=== PATIENT | male | born 1940 | race Caucasian/White ===

== ENCOUNTER → 2022-08-11 | Outpatient (CLI) | payer OTHER ==
[~2022-08-11] MED LIST: BACTRIM DS 8001 TA1 PO; BP MED; GLIMEPIRIDE2 MG PO; KEFLEX500 MG PO; LEVAQUIN750 MG PO; LIPITOR10 MG PO; LISINOPRIL10 MG PO; METFORMIN; MYCOLOG CREAM 115 GM PO; ULTRAM50 MG PO; VOLTAREN50 M1 PO
== END | disposition home or self-care (01) ==
LOC: LAB 11:03
PROVIDERS: ATTEND Internal Medicine
DX: M47.812 Spondylosis without myelopathy or radiculopathy, cervical region (principal); M25.78 Osteophyte, vertebrae

== ENCOUNTER 2023-10-18 22:01 | Emergency (ER) | payer OTHER ==
[~2023-10-18] VITALS: Wt 72.6 kg
[~2023-10-18 22:01] MED LIST changes: +Clopidogrel75 MG PO; +FERROUS SULFAT325 MG PO; +HYDRALAZINE HYD50 MG PO; +LASIX20 MG PO; +LIPITOR40 MG PO; +LOSARTAN POTASS25 M1 PO; +METFORMIN HYD1000 MG PO; +OMNICEF300 MG PO; +PANTOPRAZOLE SO40 MG PO; +RIVASTIGMINE1 EACH T; +TOPROL XL25 MG PO; +XARE20MG PO; +ZITHROMAX250 MG PO; +ZOLOFT50 MG PO
[2023-10-18 22:06] VITALS: BP 141/84
== END 2023-10-19 00:44 ==
LOC: ED 22:01
DX: S00.81XA Abrasion of other part of head, initial encounter (principal); G30.9 Alzheimer's disease, unspecified; F02.80 Dementia in other diseases classified elsewhere, unspecified severity, without behavioral disturbance, psychotic disturbance, mood disturbance, and anxiety; Z79.2 Long term (current) use of antibiotics; Z79.899 Other long term (current) drug therapy; Z98.890 Other specified postprocedural states; W18.09XA Striking against other object with subsequent fall, initial encounter; Y93.89 Activity, other specified; Y92.128 Other place in nursing home as the place of occurrence of the external cause; Y99.8 Other external cause status

== ENCOUNTER 2024-04-26 14:32 | Inpatient (IN) | payer OTHER ==
[~2024-04-26] VITALS: Ht 177.8 cm; Wt 72.7 kg
[~2024-04-26 14:32] MED LIST changes: +CIPRO500 MG PO
[2024-04-26 14:52] VITALS: BP 125/65
[2024-04-26 14:56] LABS: HEMATOCRIT 32.4 % (42.0-52.0); MEAN CELL VOLUME 98.5 fl (80.0-94.0); MEAN CORPUSCULAR HGB 30.7 pg (27.0-31.0); MEAN CORPUSCULAR HGB CONC 31.2 g/dl (33.0-37.0); MEAN PLATELET VOLUME 10.2 fl (9.6-12.3); PLATELET COUNT AUTOMATED 409 10*3/uL (130-400); RED BLOOD COUNT 3.29 10*6/uL (4.50-5.90); RED CELL DISTRI WIDTH 14.1 % (0-14.5); WHITE BLOOD COUNT 24.2 10*3/uL (4.8-10.8)
[2024-04-26 14:57] LABS: MANUAL DIFF REFLEX YES
[2024-04-26 15:10] LABS: BUN 32 mg/dl (9-23); CHLORIDE 106 mmol/L (98-107); POTASSIUM 3.3 mmol/L (3.4-5.1)
[2024-04-26 15:18] LABS: ABG O2 SATURATION 96.8 % (94.0-98.0); ARTERIAL BLOOD GAS PH 7.425 (7.350-7.450); ARTERIAL BLOOD GAS PO2 92.6 mmHg (83.0-108.0)
[2024-04-26 15:19] LABS: ABG BASE EXCESS 3.2 mmol/L (-2.0-3.0)
[2024-04-26 15:19] LABS: PLATELET SUFFICIENCY NORMAL (NORMAL); TOTAL CELLS COUNTED 100 #CELLS
[2024-04-26] MEDS ORDERED: SODIUM CHLORIDE 0.9% 1,000 ML IV ONE ×2 (15:40)
[2024-04-26] MEDS ORDERED: AZITHROMYCIN 250 MG TAB PO ONE (15:40)
[2024-04-26] MEDS ORDERED: POTASSIUM CHLORIDE 20 MEQ TAB PO ONE (15:40)
[2024-04-26] MEDS ORDERED: SODIUM CHLORIDE 0.9% 500 ML IV ONE (15:40)
[2024-04-26] MEDS ORDERED: Ceftriaxone Sodium 1 GM/10 ML SYR IV ONE (15:40)
[2024-04-26 16:09] LABS: BILIRUBIN Negative (Negative); BLOOD Negative (Negative); CLARITY Cloudy (Clear); COLOR Yellow (Yellow); GLUCOSE Negative (Negative); KETONE Negative (Negative); LEUKO ESTERASE Trace (Negative); NITRITE Negative (Negative); SPECIFIC GRAVITY >= 1.030 (1.001-1.030)
[2024-04-26] MEDS ORDERED: Magnesium Hydroxide 30 ML UDC PO PRN (16:25)
[2024-04-26] MEDS ORDERED: ACETAMINOPHEN 325 MG TAB PO PRN (16:25)
[2024-04-26] MEDS ORDERED: Ondansetron Hydrochloride 4 MG/2 ML VIAL IV PRN (16:25)
[2024-04-26 16:30] VITALS: BP 115/65
[2024-04-26] MEDS ORDERED: Albuterol Sulf/Ipratropium 3 ML VIAL NEB SCH (16:30)
[2024-04-26] MEDS ORDERED: KLOR-CON M2020 ME1 PO (18:24)
[2024-04-26] MEDS ORDERED: LOPRESSOR25 MG PO (18:25)
[2024-04-26] MEDS ORDERED: SENOKOT8.6 MG PO (18:27)
[2024-04-26] MEDS ORDERED: VITAMIN D350 MC2 PO (18:28)
[2024-04-26] MEDS ORDERED: 8 HOUR PAIN RE650 M1 PO (18:30)
[2024-04-26] MEDS ORDERED: KEPPRA500 MG PO (18:31)
[2024-04-26 19:07] VITALS: BP 115/55; BP 121/57
[2024-04-26] MEDS ORDERED: RIVAROXABAN 20 MG TAB PO SCH (20:00)
[2024-04-26] MEDS ORDERED: Metoprolol Tartrate 25 MG TAB PO SCH (22:00)
[2024-04-26] MEDS ORDERED: GUAIFENESIN 600 MG TAB ER PO SCH (22:00)
[2024-04-26] MEDS ORDERED: methylPREDNISolone sod succ 40 MG VIAL IV SCH (22:00)
[2024-04-26] MEDS ORDERED: LEVETIRACETAM 500 MG TAB PO SCH (22:00)
[2024-04-26 22:24] VITALS: BP 116/56
[2024-04-27 00:15] VITALS: BP 130/53
[2024-04-27] MEDS ORDERED: CETAPHIL226 GM T (02:48)
[2024-04-27] MEDS ORDERED: Pantoprazole Sodium 40 MG TAB PO SCH (06:00)
[2024-04-27 06:12] LABS: HEMATOCRIT 31.6 % (42.0-52.0); MEAN CORPUSCULAR HGB 30.7 pg (27.0-31.0); MEAN CORPUSCULAR HGB CONC 30.7 g/dl (33.0-37.0); MEAN PLATELET VOLUME 10.5 fl (9.6-12.3); PLATELET COUNT AUTOMATED 340 10*3/uL (130-400); RED BLOOD COUNT 3.16 10*6/uL (4.50-5.90); RED CELL DISTRI WIDTH 14.3 % (0-14.5); WHITE BLOOD COUNT 18.5 10*3/uL (4.8-10.8)
[2024-04-27 06:21] LABS: MANUAL DIFF REFLEX YES
[2024-04-27 06:42] LABS: ALKALINE PHOSPHATASE 84 U/L (46-116); BUN 28 mg/dl (9-23); CHLORIDE 109 mmol/L (98-107); SGPT/ALT 53 U/L (5-49); TOTAL PROTEIN 6.4 gm/dL (6.0-8.0)
[2024-04-27 06:54] LABS: POTASSIUM 4.6 mmol/L (3.4-5.1)
[2024-04-27 07:45] LABS: PLATELET SUFFICIENCY NORMAL (NORMAL); POLYCHROMASIA SLIGHT; TOTAL CELLS COUNTED 100 #CELLS
[2024-04-27] MEDS ORDERED: DEXTROSE 10 % IN WATER 250 ML IV PRN (07:45)
[2024-04-27 08:00] VITALS: BP 150/74
[2024-04-27] MEDS ORDERED: Sennosides A and B 8.6 MG TAB PO SCH (10:00)
[2024-04-27] MEDS ORDERED: Clopidogrel Hydrogen Sulfate 75 MG TAB PO SCH (10:00)
[2024-04-27] MEDS ORDERED: Sertraline Hydrochloride 50 MG TAB PO SCH (10:00)
[2024-04-27] MEDS ORDERED: FERROUS SULFATE 325 MG TAB PO SCH (10:00)
[2024-04-27] MEDS ORDERED: Losartan Potassium 25 MG TAB PO SCH (10:00)
[2024-04-27] MEDS ORDERED: ATORVASTATIN CALCIUM 40 MG TABLET PO SCH (10:00)
[2024-04-27] MEDS ORDERED: Metoprolol Tartrate 25 MG TAB PO SCH (10:00)
[2024-04-27] MEDS ORDERED: INSULIN LISPRO 1 UNIT/0.01 ML SQ SCH (11:30)
[2024-04-27 11:59] VITALS: BP 143/64
[2024-04-27 16:00] VITALS: BP 108/51
[2024-04-27] MEDS ORDERED: Ceftriaxone Sodium 1 GM in SYRINGE INFUSION 10 ML IV SCH (17:00)
[2024-04-27] MEDS ORDERED: AZITHROMYCIN 250 ML IV SCH (18:00)
[2024-04-27 20:00] VITALS: BP 116/47
[2024-04-28] VITALS: BP 141/62
[2024-04-28 06:19] LABS: HEMATOCRIT 30.5 % (42.0-52.0); MEAN CELL VOLUME 97.8 fl (80.0-94.0); MEAN CORPUSCULAR HGB 30.8 pg (27.0-31.0); MEAN CORPUSCULAR HGB CONC 31.5 g/dl (33.0-37.0); MEAN PLATELET VOLUME 10.9 fl (9.6-12.3); PLATELET COUNT AUTOMATED 351 10*3/uL (130-400); RED BLOOD COUNT 3.12 10*6/uL (4.50-5.90); RED CELL DISTRI WIDTH 14.1 % (0-14.5); WHITE BLOOD COUNT 21.3 10*3/uL (4.8-10.8)
[2024-04-28 06:26] LABS: MANUAL DIFF REFLEX YES
[2024-04-28 06:56] LABS: BUN 32 mg/dl (9-23); CHLORIDE 108 mmol/L (98-107); POTASSIUM 4.2 mmol/L (3.4-5.1)
[2024-04-28 08:00] VITALS: BP 156/61
[2024-04-28 08:08] LABS: PLATELET SUFFICIENCY NORMAL (NORMAL); POLYCHROMASIA SLIGHT; TOTAL CELLS COUNTED 100 #CELLS
[2024-04-28 12:00] VITALS: BP 118/50
[2024-04-28 16:00] VITALS: BP 144/76
[2024-04-28 20:00] VITALS: BP 126/62
[2024-04-29] VITALS: BP 139/71
[2024-04-29 06:25] LABS: BUN 29 mg/dl (9-23); CHLORIDE 106 mmol/L (98-107); POTASSIUM 4.4 mmol/L (3.4-5.1)
[2024-04-29 06:52] LABS: HEMATOCRIT 30.5 % (42.0-52.0); MEAN CELL VOLUME 96.8 fl (80.0-94.0); MEAN CORPUSCULAR HGB 30.2 pg (27.0-31.0); MEAN CORPUSCULAR HGB CONC 31.1 g/dl (33.0-37.0); MEAN PLATELET VOLUME 10.9 fl (9.6-12.3); PLATELET COUNT AUTOMATED 390 10*3/uL (130-400); RED BLOOD COUNT 3.15 10*6/uL (4.50-5.90); RED CELL DISTRI WIDTH 14.4 % (0-14.5); WHITE BLOOD COUNT 22.1 10*3/uL (4.8-10.8)
[2024-04-29 07:15] VITALS: BP 124/70; BP 125/70
[2024-04-29 07:16] LABS: MANUAL DIFF REFLEX YES
[2024-04-29 07:55] LABS: PLATELET SUFFICIENCY NORMAL (NORMAL); POLYCHROMASIA SLIGHT; TOTAL CELLS COUNTED 100 #CELLS
[2024-04-29] MEDS ORDERED: Ceftriaxone Sodium 2 GM in SYRINGE INFUSION 20 ML IV SCH (10:00)
[2024-04-29] MEDS ORDERED: FUROSEMIDE 40 MG/4 ML VIAL IV SCH (10:00)
[2024-04-29 12:00] VITALS: BP 131/75
[2024-04-29 16:00] VITALS: BP 119/58
[2024-04-29] MEDS ORDERED: Menthol/Zinc Oxide 4 GM THIN T SCH (18:00)
[2024-04-29 20:00] VITALS: BP 140/67
[2024-04-30] VITALS (11 sets, daily range): BP systolic 100–167; BP diastolic 44–81
[2024-04-30 07:03] LABS: ACT PARTIAL THROMBO TIME 35.5 SECONDS (20.0-32.1); HEMATOCRIT 30.1 % (42.0-52.0); MEAN CELL VOLUME 96.5 fl (80.0-94.0); MEAN CORPUSCULAR HGB 30.8 pg (27.0-31.0); MEAN CORPUSCULAR HGB CONC 31.9 g/dl (33.0-37.0); MEAN PLATELET VOLUME 10.6 fl (9.6-12.3); PLATELET COUNT AUTOMATED 382 10*3/uL (130-400); RED BLOOD COUNT 3.12 10*6/uL (4.50-5.90); RED CELL DISTRI WIDTH 14.3 % (0-14.5); WHITE BLOOD COUNT 19.6 10*3/uL (4.8-10.8)
[2024-04-30 07:12] LABS: MANUAL DIFF REFLEX YES
[2024-04-30 07:15] LABS: BUN 30 mg/dl (9-23); CHLORIDE 103 mmol/L (98-107); POTASSIUM 4.5 mmol/L (3.4-5.1)
[2024-04-30 08:24] LABS: PLATELET SUFFICIENCY NORMAL (NORMAL); TOTAL CELLS COUNTED 100 #CELLS
[2024-05-01] VITALS: BP 128/64
[2024-05-01 08:00] VITALS: BP 138/68
[2024-05-01 10:00] VITALS: BP 110/58
[2024-05-01] MEDS ORDERED: methylPREDNISolone sod succ 40 MG VIAL IV SCH (10:00)
[2024-05-01 12:00] VITALS: BP 110/58
[2024-05-01 16:00] VITALS: BP 126/61
[2024-05-01 16:07] LABS: ACID FAST SPEC PROCESSING Direct Inoculation (.)
[2024-05-01 20:00] VITALS: BP 100/42
[2024-05-02] VITALS: BP 122/57
[2024-05-02 07:48] LABS: HEMATOCRIT 27.9 % (42.0-52.0); MEAN CELL VOLUME 97.2 fl (80.0-94.0); MEAN CORPUSCULAR HGB 30.3 pg (27.0-31.0); MEAN CORPUSCULAR HGB CONC 31.2 g/dl (33.0-37.0); MEAN PLATELET VOLUME 9.9 fl (9.6-12.3); PLATELET COUNT AUTOMATED 396 10*3/uL (130-400); RED BLOOD COUNT 2.87 10*6/uL (4.50-5.90); RED CELL DISTRI WIDTH 14.5 % (0-14.5)
[2024-05-02 07:51] LABS: MANUAL DIFF REFLEX YES
[2024-05-02 08:00] VITALS: BP 110/48
[2024-05-02 08:04] LABS: BUN 27 mg/dl (9-23); CHLORIDE 101 mmol/L (98-107)
[2024-05-02 08:15] LABS: OVALOCYTES FEW; PLATELET SUFFICIENCY NORMAL (NORMAL); POLYCHROMASIA SLIGHT; TOTAL CELLS COUNTED 100 #CELLS; VACUOLATION OF NEUTROPHILS SLIGHT
[2024-05-02 12:00] VITALS: BP 107/37; BP 138/58
[2024-05-02] MEDS ORDERED: Piperacillin Sodium/Tazobact 50 ML IV SCH (12:00)
[2024-05-02 16:00] VITALS: BP 107/57
[2024-05-02 20:00] VITALS: BP 104/41
[2024-05-03] VITALS: BP 117/48
[2024-05-03 06:13] LABS: BUN 29 mg/dl (9-23); CHLORIDE 103 mmol/L (98-107); POTASSIUM 4.2 mmol/L (3.4-5.1)
[2024-05-03 06:13] LABS: HEMATOCRIT 26.1 % (42.0-52.0); MEAN CELL VOLUME 97.8 fl (80.0-94.0); MEAN CORPUSCULAR HGB 30.7 pg (27.0-31.0); MEAN CORPUSCULAR HGB CONC 31.4 g/dl (33.0-37.0); MEAN PLATELET VOLUME 10.4 fl (9.6-12.3); PLATELET COUNT AUTOMATED 412 10*3/uL (130-400); RED BLOOD COUNT 2.67 10*6/uL (4.50-5.90); RED CELL DISTRI WIDTH 14.5 % (0-14.5); WHITE BLOOD COUNT 22.4 10*3/uL (4.8-10.8)
[2024-05-03 06:28] LABS: MANUAL DIFF REFLEX YES
[2024-05-03 07:13] LABS: MICROCYTOSIS SLIGHT; OVALOCYTES FEW; PLATELET SUFFICIENCY HIGH (NORMAL); TOTAL CELLS COUNTED 100 #CELLS
[2024-05-03 08:00] VITALS: BP 118/70
[2024-05-03] MEDS ORDERED: methylPREDNISolone sod succ 40 MG VIAL IV SCH (10:00)
[2024-05-03 12:00] VITALS: BP 116/52
[2024-05-03 16:00] VITALS: BP 135/62
[2024-05-03 20:00] VITALS: BP 90/45
[2024-05-03 23:49] VITALS: BP 101/54
[2024-05-04 05:07] LABS: BUN 26 mg/dl (9-23); CHLORIDE 102 mmol/L (98-107); POTASSIUM 4.6 mmol/L (3.4-5.1)
[2024-05-04 06:19] LABS: MEAN CELL VOLUME 98.9 fl (80.0-94.0); MEAN CORPUSCULAR HGB 31.4 pg (27.0-31.0); MEAN CORPUSCULAR HGB CONC 31.8 g/dl (33.0-37.0); MEAN PLATELET VOLUME 10.4 fl (9.6-12.3); PLATELET COUNT AUTOMATED 426 10*3/uL (130-400); RED BLOOD COUNT 2.83 10*6/uL (4.50-5.90); RED CELL DISTRI WIDTH 14.8 % (0-14.5); WHITE BLOOD COUNT 21.8 10*3/uL (4.8-10.8)
[2024-05-04 07:09] LABS: MANUAL DIFF REFLEX YES
[2024-05-04 07:26] LABS: PLATELET SUFFICIENCY HIGH (NORMAL); TOTAL CELLS COUNTED 100 #CELLS
[2024-05-04 08:00] VITALS: BP 106/35
[2024-05-04 12:00] VITALS: BP 101/62
[2024-05-04] MEDS ORDERED: FERROUS SULFAT325 MG PO (12:53)
[2024-05-04 16:00] VITALS: BP 106/74
== END 2024-05-04 18:04 | DRG 871 ==
LOC: ED 14:32 → EDHOLD 15:47 → 4E 15:47
PROVIDERS: Emergency Medicine; Registered Nurse; Student in an Organized Health Care Education/Training Program; ADMIT Internal Medicine; ATTEND Internal Medicine
PROC: 0W993ZZ Drainage of Right Pleural Cavity, Percutaneous Approach (ICD-10-PCS; principal; 2024-04-30)
DX: A41.9 Sepsis, unspecified organism (principal); E43 Unspecified severe protein-calorie malnutrition; G93.41 Metabolic encephalopathy; J69.0 Pneumonitis due to inhalation of food and vomit; J96.21 Acute and chronic respiratory failure with hypoxia; J15.69 Pneumonia due to other Gram-negative bacteria; E87.20 Acidosis, unspecified; J44.0 Chronic obstructive pulmonary disease with (acute) lower respiratory infection; J90 Pleural effusion, not elsewhere classified; Z68.1 Body mass index [BMI] 19.9 or less, adult; Z66 Do not resuscitate; R65.20 Severe sepsis without septic shock; E87.6 Hypokalemia; D53.9 Nutritional anemia, unspecified; K21.9 Gastro-esophageal reflux disease without esophagitis; F32.A Depression, unspecified; D75.839 Thrombocytosis, unspecified; E11.65 Type 2 diabetes mellitus with hyperglycemia; E78.2 Mixed hyperlipidemia; E11.42 Type 2 diabetes mellitus with diabetic polyneuropathy; J84.10 Pulmonary fibrosis, unspecified; I10 Essential (primary) hypertension; Z79.899 Other long term (current) drug therapy; Z79.01 Long term (current) use of anticoagulants; Z79.2 Long term (current) use of antibiotics; Z99.81 Dependence on supplemental oxygen; Z95.2 Presence of prosthetic heart valve